=== PATIENT | male | born 1940 | race Caucasian/White ===

== ENCOUNTER 2022-10-12 12:29 | Emergency (ER) | payer MEDICARE ==
--- OUTSIDE RECORDS SUMMARY | 2022-10-12 12:33 | XMS REPORT | Continuity of Care Document ---
:1940 Author Organization [facility] t Address [address] [place] [address] [address] [place] [address] Care Team Providers Name Role Phone Eric Beal Primary Care Physician Eric Pardo Attending Clinician Unavailable Guillaume Attending Clinician Unavailable Zuri Sutton Attending Clinician Lesley_Cristy Attending Clinician Unavailable Miller Sanchez Attending Clinician Unavailable Katheryn Arias RN Attending Clinician Unavailable Only, Ang Db Test Attending Clinician Unavailable Ariane iVzcaino Attending Clinician ARIANE MARTINEZ Attending Clinician Unavailable Doctor Unassigned, [place] Attending Clinician Unavailable FulrafaelaarLionel Admitting Clinician Unavailable Yogeshzo_T Admitting Clinician Unavailable Miller Sanchez Admitting Clinician Unavailable Payers Payer Name Policy Type Policy Number Effective Date Expiration Date [facility] bubl [id number] 2022 (MEDICARE 00:00:00 REPLACEMENT HMO) [place] [id number] Common [facility] Problems Condition Condition Condition Status Onset Resolution Last Treating Co mments Source Name Details Category Date Date Treatment Clinician Date Erectile Erectile Problem Active Commo n dysfunctio dysfunctio [facility] n [place] [facility] Kidney Kidney Problem Active Common stone stones [facility] Allergies, Adverse Reactions, Alerts Allergy Allergy Status Severity Reaction(s) Onset Inactive Treating Comm ents Source Name Type Date Date Clinician roma DA Active [place] SWEEL[place], [facility] -iodine REDNESS 07-23 00:00: [address] diazepam DA Active [place] hallucinatio HC A n 07-09 00:00: [address] latex DA Active SV throat [facility] swelling 07-09 00:00: [address] NO KNOWN Drug Active Univers ALLERGIE Class ity of [facility] Social History Social Habit Start Date Stop Date Quantity Comments Source History of Tobacco Use Co mmon [facility] Sex Assigned At Com [facility] Exposure to SARS-CoV-2 Not sure [facility] Smoking Status Start Date Stop Date Source Unknown if ever smoked [facility] Never Smoker Common [facility] Medications Ordered Filled Start Stop Current Ordering Indication Dosage Frequency Signature Comments Components Source Medication Medication Date Date Medication? Clinician (SIG) Name Name Cipro 250 Cipro 250 2019-03 2020- No 1{table QD Cipro 250 MG MG 12-14 t} MG 00:00: 00:00 00 :00 Cefdinir Cefdinir 2020- No Edilia as Com 11-01 [place] directed Spirit 00:00: 00:00 - [facility] 00 :00 [facility] Pantoprazol Pantoprazol Yes Edilia 1 tablet Common e Sodium e Sodium [place] Spi [facility] Multi Multi Yes Edilia 1 tablet Common Vitamin Vitamin Marilee Spiri [facility] Carvedilol Carvedilol Yes Edilia 1 tablet Common [place] with food [facility] Enalapril Enalapril No 1{table QD Enalapril Maleate 20 Maleate 20 t} Maleate 20 MG MG MG [place] 3 [place] 3 No 1{capsu QD [place] 3 1000 MG 1000 MG le} 1000 MG Magnesium Magnesium No 1{table QD Magnesium 250 MG 250 MG t_with_ 250 MG a_meal} L-Lysine L-Lysine No L-Lysine 500 MG 500 MG 500 MG Aspirin 81 Aspirin 81 No 1{table QD Aspirin 81 MG MG t} MG Plavix 75 Plavix 75 No 1{table QD Plavix 75 MG MG t} MG Pantoprazol Pantoprazol No 1{table QD Pantoprazo e Sodium 40 e Sodium 40 t} le Sodium MG MG 40 MG Multi Multi No 1{table QD Multi Vitamin - Vitamin - t} Vitamin - Vitamin D3 Vitamin D3 No Vitamin D3 [id number] UNIT/GM UNIT/GM UNIT/GM Glimepiride Glimepiride No 1{table QD Glimepirid 4 MG 4 MG t_with_ e [address]_or_t he_firs t_main_ meal_of _the_da y} CoQ10 100 CoQ10 100 No 1{capsu QD CoQ10 100 MG MG le_with MG _a_meal } Janumet Janumet No 1{table BID Janumet 50-1000 MG 50-1000 MG t_with_ 50-1000 MG meals} Carvedilol Carvedilol No 1{table BID Carvedilol 6.25 MG 6.25 MG t_with_ 6.25 MG food} Jardiance Jardiance No 1{table QD Jardiance 25 MG 25 MG t} 25 MG Flomax 0.4 Flomax 0.4 No 1{capsu QD Flomax 0.4 MG MG le} MG Magnesium Magnesium No 1{table QD Magnesium 250 MG 250 MG t_with_ 250 MG a_meal} Jardiance Jardiance No 1{table QD Jardiance 25 MG 25 MG t} 25 MG Glimepiride Glimepiride No 1{table QD Glimepirid 4 MG 4 MG t_with_ e [address]_or_t he_firs t_main_ meal_of _the_da y} Enalapril Enalapril No 1{table QD Enalapril Maleate 20 Maleate 20 t} Maleate 20 MG MG MG Flomax 0.4 Flomax 0.4 No 1{capsu QD Flomax 0.4 MG MG le} MG Carvedilol Carvedilol No 1{table BID Carvedilol 6.25 MG 6.25 MG t_with_ 6.25 MG food} Pantoprazol Pantoprazol No 1{table QD Pantoprazo e Sodium 40 e Sodium 40 t} le Sodium MG MG 40 MG Multi Multi No 1{table QD Multi Vitamin - Vitamin - t} Vitamin - L-Lysine L-Lysine No L-Lysine 500 MG 500 MG 500 MG Aspirin 81 Aspirin 81 No 1{table QD Aspirin 81 MG MG t} MG Vitamin D3 Vitamin D3 No Vitamin D3 [id number] UNIT/GM UNIT/GM UNIT/GM [place] 3 [place] 3 No 1{capsu QD [place] 3 1000 MG 1000 MG le} 1000 MG Plavix 75 Plavix 75 No 1{table QD Plavix 75 MG MG t} MG Janumet Janumet No 1{table BID Janumet 50-1000 MG 50-1000 MG t_with_ 50-1000 MG meals} CoQ10 100 CoQ10 100 No 1{capsu QD CoQ10 100 MG MG le_with MG _a_meal } Flomax 0.4 Flomax 0.4 No 1{capsu QD Flomax 0.4 MG MG le} MG Multi Multi No 1{table QD Multi Vitamin - Vitamin - t} Vitamin - CoQ10 100 CoQ10 100 No 1{capsu QD CoQ10 100 MG MG le_with MG _a_meal } Aspirin 81 Aspirin 81 No 1{table QD Aspirin 81 MG MG t} MG Magnesium Magnesium No 1{table QD Magnesium 250 MG 250 MG t_with_ 250 MG a_meal} Plavix 75 Plavix 75 No 1{table QD Plavix 75 MG MG t} MG Vitamin D3 Vitamin D3 No Vitamin D3 [id number] UNIT/GM UNIT/GM UNIT/GM Janumet Janumet No 1{table BID Janumet 50-1000 MG 50-1000 MG t_with_ 50-1000 MG meals} [place] 3 [place] 3 No 1{capsu QD [place] 3 1000 MG 1000 MG le} 1000 MG L-Lysine L-Lysine No L-Lysine 500 MG 500 MG 500 MG Jardiance Jardiance No 1{table QD Jardiance 25 MG 25 MG t} 25 MG Glimepiride Glimepiride No 1{table QD Glimepirid 4 MG 4 MG t_with_ e [address]_or_t he_firs t_main_ meal_of _the_da y} Carvedilol Carvedilol No 1{table BID Carvedilol 6.25 MG 6.25 MG t_with_ 6.25 MG food} Pantoprazol Pantoprazol No 1{table QD Pantoprazo e Sodium 40 e Sodium 40 t} le Sodium MG MG 40 MG Enalapril Enalapril No 1{table QD Enalapril Maleate 20 Maleate 20 t} Maleate 20 MG MG MG Flomax 0.4 Flomax 0.4 No 1{capsu QD Flomax 0.4 MG MG le} MG Multi Multi No 1{table QD Multi Vitamin - Vitamin - t} Vitamin - CoQ10 100 CoQ10 100 No 1{capsu QD CoQ10 100 MG MG le_with MG _a_meal } Aspirin 81 Aspirin 81 No 1{table QD Aspirin 81 MG MG t} MG Magnesium Magnesium No 1{table QD Magnesium 250 MG 250 MG t_with_ 250 MG a_meal} Plavix 75 Plavix 75 No 1{table QD Plavix 75 MG MG t} MG Vitamin D3 Vitamin D3 No Vitamin D3 [id number] UNIT/GM UNIT/GM UNIT/GM Janumet Janumet No 1{table BID Janumet 50-1000 MG 50-1000 MG t_with_ 50-1000 MG meals} [place] 3 [place] 3 No 1{capsu QD [place] 3 1000 MG 1000 MG le} 1000 MG L-Lysine L-Lysine No L-Lysine 500 MG 500 MG 500 MG Jardiance Jardiance No 1{table QD Jardiance 25 MG 25 MG t} 25 MG Glimepiride Glimepiride No 1{table QD Glimepirid 4 MG 4 MG t_with_ e [address]_or_t he_firs t_main_ meal_of _the_da y} Carvedilol Carvedilol No 1{table BID Carvedilol 6.25 MG 6.25 MG t_with_ 6.25 MG food} Pantoprazol Pantoprazol No 1{table QD Pantoprazo e Sodium 40 e Sodium 40 t} le Sodium MG MG 40 MG Enalapril Enalapril No 1{table QD Enalapril Maleate 20 Maleate 20 t} Maleate 20 MG MG MG Jardiance Jardiance Yes Edilia 1 tablet Common [place] [facility] Janumet Janumet Yes Edilia 1 tablet Comm on [place] with meals Spiri t - [facility] Plavix Plavix Yes Edilia 1 tablet Common [place] [facility] CoQ10 CoQ10 Yes Edilia 1 capsule Common [place] with a Spirit meal [facility] Flomax Flomax Yes Edilia 1 capsule Commo n [place] [facility] Vitamin D3 Vitamin D3 Yes Edilia as Co mmon [place] directed [facility] Glimepiride Glimepiride Yes Edilia 1 tablet Common [place] with Spirit breakfast - [facility] or the [facility] meal Medical the day [place] Enalapril Enalapril Yes Edilia 1 tablet Common Maleate Maleate [place] Spiri t - [facility] Aspirin Aspirin Yes Edilia 1 tablet Comm on [place] [facility] [place] 3 [place] 3 Yes Edilia 1 capsule Com mon [place] [facility] Magnesium Magnesium Yes Edilia 1 tablet Common [place] with a Spirit meal [facility] L-Lysine L-Lysine Yes Edilia as Common [place] directed [facility] Vital Signs Vital Name Observation Time Observation Value Comments Source height 2020-03-22 10:00:00 70 [in_i] [facility] weight 2020-03-22 10:00:00 214 [lb_av] [facility] temperature 2020-03-22 10:00:00 97.4 [degF] [facility] bmi 2020-03-22 10:00:00 30.7 kg/m2 [facility] oximetry 2020-03-22 10:00:00 95 % [facility] S pirit [facility] blood pressure 2020-03-22 10:00:00 179 mm[Hg] [facility] - systolic [facility] blood pressure 2020-03-22 10:00:00 77 mm[Hg] Common [facility] - diastolic [facility] height 2019-12-21 12:00:00 70 [in_i] [facility] weight 2019-12-21 12:00:00 214 [lb_av] [facility] S [facility] - [facility] temperature 2019-12-21 12:00:00 98 [degF] Common [facility] bmi 2019-12-21 12:00:00 30.7 kg/m2 [facility] oximetry 2019-12-21 12:00:00 94 % Common [facility] blood pressure 2019-12-21 12:00:00 152 mm[Hg] Common Spirit - systolic [facility] blood pressure 2019-12-21 12:00:00 70 mm[Hg] Common [facility] - diastolic [facility] Procedures This patient has no known procedures. Encounters Start End Encounter Admission Attending Care Care Encounter Source Date/Time Date/Time Type Type Clinicians Facility Department ID 2021-04-04 Outpatient ADOLFO Pardo [facility] [id number] Common 11:33:15 Eric [id number] [facility] 2021-04-04 Outpatient Edvin [facility] [id number] Common 11:13:55 Eric [id number] [facility] 2022-10-01 2022-10-01 Outpatient Fulminar_S [facility]G [id number] [facility] 00:00:00 00:00:00 [id number] [facility] 2022-10-01 2022-10-01 Outpatient Fulminar_S DMG DM [id number] [facility] 00:00:00 00:00:00 [id number] [facility] l [facility] 2022-04-10 2022-04-10 MARIE Keating [id number]. [id number]. [facility] [id number] [facility] 16:30:00 17:30:00 Lesley [id number] [facility] [id number] 2022-04-10 2022-04-10 Outpatient Deshazo_T DMG DMG [id number] [facility] 00:00:00 00:00:00 [id number] [facility] l Group 2022-04-10 2022-04-10 Outpatient Deshazo_[place] [id number] [facility] 00:00:00 00:00:00 [id number] [facility] 2022-02-06 2022-02-06 Outpatient DMG DMG [id number] [facility] 00:00:00 00:00:00 [id number] [facility] 2021-12-24 2021-12-24 Outpatient DMG DMG [id number] [facility] 00:00:00 00:00:00 [id number] [facility]ica l Group 2021-07-23 2021-07-24 Inpatient ALLYSON Sanchez [facility] TELE [id number] [facility] 09:42:00 12:13:[id number] [facility] 2021-07-23 2021-07-24 Inpatient ALLYSON Sanchez [facility] TELE [id number] [facility] 09:42:00 12:13:[address] [facility] 2020-12-16 2020-12-16 Letter BON Arias [id number] Univers 00:00:00 00:00:00 (Out) Katheryn Muniz [place] [id number] it [facility] 4.2.7.2.686 Uriel as [phone] [address] 2020-12-15 2020-12-15 Outpatient R [facility] [id number] Univers 11:15:00 11:15:00 ity [facility] 2020-12-15 2020-12-15 Laboratory Only, Ang Db Test [facility] 1.2.8 40.114 [id number] Univers 10:57:34 11:12:34 Only [facility] [id number] ity [facility] 4.2.7.2.686 Uriel as Job?Blea [phone] [address] Medical Office Building 2020-12-10 2020-12-10 Outpatient PRIV PRIV [id number] [facility] 00:00:00 00:00:00 [id number] Medica l 2020-12-10 2020-12-10 Outpatient PRIV PRIV [id number] [facility] 00:00:00 00:00:00 [id number] Medica l 2020-11-20 2020-11-20 BON Alicia [id number] Univers 00:00:00 00:00:00 (Out) Katheryn Muniz DANIELA [id number] it y of HOSPITAL [id number] Uriel as [phone] [facility] 0[address] Branch 2020-11-18 2020-11-18 Outpatient R JUAN [facility] [id number] Univers 15:00:00 15:00:[address] [facility] 2020-11-18 2020-11-18 Laboratory Only, Ang Db Test [facility] 1.2.8 40.114 [id number] Univers 14:41:27 14:51:27 Only Juan [facility] [id number] ity of [place] 4.2.7.2.686 Uriel as Job?Blea [phone] [address] Medical Office Building 2020-11-18 2020-11-18 Letter Doctor BON [id number] Univers 00:00:00 00:00:00 (Out) LamarssDANIELA astudillo [id number] ity of [place] [facility] [id number] Uriel as [phone] [facility] 044 Branch 2020-09-18 2020-09-18 (TEL) STLMLC STLMLC [id number] Co mmon 00:00:00 00:00:00 [facility] 2020-03-22 2020-03-22 OFFICE STLMLC STLMLC [id number] Co mmon 00:00:00 00:00:00 VISIT EST Spir it PT LEVEL 3 - [facility] 2019-12-21 2019-12-21 (PROC) STLMLC STLMLC [id number] Co mmon 00:00:00 00:00:00 Procedure Spir it - [facility] 2019-12-08 2019-12-08 (TEL) STLMLC STLMLC [id number] Co mmon 00:00:00 00:00:00 [facility] 2019-11-01 2019-11-01 [id number] Common 10:15:00 10:15:00 t Specialty/U Sp sam Specialty rology - [facility] /Urology Clinic [facility] 2019-10-05 2019-10-05 Outpatient [facility] [id number] Common 09:09:00 09:09:00 t Specialty/U Sp sam Specialty rology - [facility] /[facility] 2019-10-04 2019-10-04 Outpatient [facility] [id number] Common 13:30:00 13:30:00 t Specialty/U Sp sam Specialty rology - [facility] /[facility] Clinic [facility] 2019-10-04 2019-10-04 Outpatient [facility] [id number] Common 09:07:00 09:07:00 t Specialty/U Sp sam Specialty rology - [facility] /[facility] Clinic [facility] 2019-05-24 2019-05-24 Outpatient [facility] [id number] Common 09:30:00 09:30:00 t Specialty/U Sp sam Specialty rology - [facility] /[facility] Results Test Description Test Time Test Comments Results Result Comments Source GLUCOSE BEDSIDE TESTING 2021-07-24 06:50:00 Test Item Value Reference Range Interpretation Comme nts GLUCOSE BEDSIDE TESTING (test code = GLUBED) 157 MG/DL 60-99 H GLUCOSE BEDSIDE [id number] 19:22:00 Test Item Value Reference Range Interpretation Comments GLUCOSE BEDSIDE TESTING (test code 170 MG/DL 60-99 H = GLUBED) - XR CHEST [id number] 16:17:00 [facility] 1940 Sex: M Patient Name: LEONCIO FREEMAN Unit No: [id number] EXAMS: CPT CODE: [id number] XR CHEST 1V [id number] EXAM: CHEST ONE VIEW INDICATION: S/P ICD LOCATION: B2 COMPARISON: None available TECHNIQUE: AP view of the chest FINDINGS: The heart size is normal. There is evidence of prior thoracic surgery. There is an AICD in the left chest with no apparent discontinuity of the leads. The lungs are clear bilaterally. The pulmonary vasculature is normal. No pneumothorax or pleural effusion is identified. The osseous structures are normal. IMPRESSION: No acute cardiopulmonary process. No pneumothorax is identified. at 1617 Reported and signed by: Lucinda Rivas MD CC: Miller Sanchez Technologist: [place] BROWN R Transcrpt Date/Tm/Trnsp: 07/23/2021 (1617) 16 Orig Print D/T: S: 07/23/2021 (9070) [facility] NAME: LEONCIO FREEMAN [address] PHYS: [place] [address] : 1940 AGE: 80 SEX: M LOC: Z.DC5 A PHONE #: [phone] EXAM DATE: 07/23/2021 STATUS: ADM IN FAX #: [phone] RADIOLOGY NO: PAGE 1 Signed [id number] 10:48:00 Test Item Value Reference Range Interpretation Comments MAGNESIUM (test code = MAG) 2.1 MG/DL 1.6-2.3 N BASIC METABOLIC [id number] 10:48:00 Test Item Value Reference Range Interpretation Comments SODIUM (test code = 140 MMOL/L 137-145 N NA) POTASSIUM (test code = 4.1 MMOL/L 3.5-5.1 N K) CHLORIDE (test code = 100 MMOL/L 98-107 N CL) CARBON DIOXIDE (test 27 MMOL/L 22-30 N code = CO2) GLUCOSE (test code = 168 MG/DL 74-106 H GLU) BLOOD UREA NITROGEN 21 MG/DL 9-20 H (test code = BUN) GLOMERULAR FILTRATION > 60 Report ing units: RATE (test code = GFR) ml/mi n/1.73 m2 (Modified MDRD Formula)Referen ce Range: > or = 6 0 ml/min/1.73 m2 CREATININE (test code 1.00 MG/DL 0.66-1.25 N = CREAT) CALCIUM (test code = 9.5 MG/DL 8.4-10.2 N CA) PROTHROMBIN [id number] 10:20:00 Test Item Value Reference Range Interpretation Comments PROTHROMBIN TIME 10.7 SECONDS 9.4-12.7 N PATIENT (test code = PTP) INTERNATIONAL NORMAL 1.0 0.86-1.14 N The INR is to be RATIO (test code = used only for INR) monitoring oral anticoagulantth erap y. INDICATION I NR VALUE ---- ---- ---- -------1. Prophylaxis, de ep venous thrombos is, including high risk surgery. 2.0 - 3.0 2. Prophylaxis, deep venous thrombosis, hip surgery, treatm ent for deep venous thrombosis or pulmonary prevention of systemic emboli sm in patients wit h valvular heart disease, atrial fibrillation, tissue heart va lve, or acute myocar dial infarction. 2.0 - 3.0 3. Front Office Help al prosthesis hear t valves, recurre nt systemic emboli sm. 3.0 - 4.5 PTT [id number] 10:20:00 Test Item Value Reference Range Interpretation Comments PTT ACTIVATED (test code = APTT) 31.9 SECONDS 26.2-35.4 N CBC W/AUTO [id number] 10:10:00 Test Item Value Reference Range Interpretation Comments WHITE BLOOD CELL (test code = 7.6 K/MM3 3.8-9.8 N WBC) RED BLOOD CELL (test code = 5.99 M/MM3 3.95-5.67 H RBC) HEMOGLOBIN (test code = HGB) 16.9 G/DL 12.4-16.7 H HEMATOCRIT (test code = HCT) 52.9 % 35.9-49.5 H MEAN CELL VOLUME (test code = 88 fL 81.7-96.1 N MCV) MEAN CELL HGB (test code = MCH) 28.2 pg 27.6-33.2 N MEAN CELL HGB CONCETRATION 31.9 % 32.9-35.5 L (test code = MCHC) RED CELL DISTRIBUTION WIDTH 12.7 % 12.1-15.2 N (test code = RDW) PLATELET COUNT (test code = 242 K/MM3 129-368 N PLT) MEAN PLATELET VOLUME (test code 9.0 fl 7.4-10.4 N = MPV) NEUTROPHIL % (test code = NT%) 68.4 % 43-75 N IMMATURE GRANULOCYTE % (test 0.4 % 0.0-2.0 N code = IG%) LYMPHOCYTE % (test code = LY%) 22.7 % 14-44 N MONOCYTE % (test code = MO%) 6.8 % 4-13 N EOSINOPHIL % (test code = EO%) 1.2 % 0-6 N BASOPHIL % (test code = BA%) 0.5 % 0-2 N NUCLEATED RBC % (test code = 0.0 % 0-1.0 N NRBC%) NEUTROPHIL # (test code = NT#) 5.20 K/mm3 2.0-7.6 N IMMATURE GRANULOCYTE # (test 0.03 x10 3/uL 0-0.03 N code = IG#) LYMPHOCYTE # (test code = LY#) 1.73 K/mm3 1.0-3.8 N MONOCYTE # (test code = MO#) 0.52 K/mm3 0.1-0.8 N EOSINOPHIL # (test code = EO#) 0.09 K/mm3 0.0-0.2 N BASOPHIL # (test code = BA#) 0.04 K/mm3 0.0-0.2 N NUCLEATED RBC # (test code = 0.00 K/mm3 0.0-0.1 N NRBC#) Notes Date/Time Note Provider Source 2021-07-24 06:59:00-00:[address] [facility] [place] [place] ([facility]) Cardiology Progress Note REPORT#:[id number] REPORT STATUS: Signed DATE:07/24/21 TIME: 658 PATIENT: LEONCIO FREEMAN UNIT #: [id number] [facility] AGE: 80 SEX: M ATTEND: Yousuf Sanchez MD ADM AUTHOR: Miller Sanchez MD * ALL edits or amendments must be made on the el ectronic/computer document * Subjective Chief complaint: CHF Patient reports: No: chest pain, palpitations, shortness of breat h. Objective General VS/I O: Vital Signs: Date Time Temp Pulse Resp B/P B/P Pulse O2 O2 F low FiO2 Mean Ox Delivery Rate 07/24 0651 97.5 57 18 151/75 100.0 92 Room air 07/24 0415 97.5 60 18 130/72 90.9 93 Room air 07/23 2340 97.7 60 18 119/66 83.5 94 Room air 07/23 1921 97.9 56 18 148/75 99.3 95 Room air 07/23 1706 97.3 64 15 126/72 89.8 95 PATIENT WEIGHT: Weight (lb): Weight (oz): Weight (kg): Medications: Active Meds + DC'd Last 24 Hrs Insulin Human Lispro (HumaLOG) LOW DOSE SLIDING SCALE AC HS SUBQ Dextrose/Water (DEXTROSE 50% IN WATER) 12.5 GM A SDIR PRN IV Dextrose/Water (DEXTROSE 50% IN WATER) 25 GM ASD IR PRN IV Hydrocodone Bitart/Acetaminophen (NORCO 5/325 TA BLET (C-II)) 1 TAB Q4H PRN PRN PO Cefazolin Sodium (ANCEF) 1 GM Q8H IV (DC) Sodium Chloride (SODIUM CHLORIDE 0.9%) 10 ML Cefazolin Sodium (ANCEF) 0 .STK-MED ONE .ROUTE ( DC) Fentanyl Citrate (SUBLIMAZE (C-II)) 0 .STK-MED O NE .ROUTE (DC) Midazolam HCl (VERSED (C-IV)) 0 .STK-MED ONE .RO ZENAIDA (DC) Lidocaine HCl (XYLOCAINE 1%) 0 .STK-MED ONE .ROU TE (DC) Midazolam HCl (VERSED (C-IV)) 0 .STK-MED ONE .RO ZENAIDA (DC) Atropine Sulfate (ATROPINE SULFATE) 0 .STK-MED O NE .ROUTE (DC) Iopamidol (ISOVUE-300) 0 .STK-MED ONE .ROUTE (DC ) Lidocaine HCl (XYLOCAINE 1%) 0 .STK-MED ONE .ROU TE (DC) Sodium Chloride (SODIUM CHLORIDE 0.9%) 500 ML .S TK-MED ONE IV (DC) Cefazolin Sodium (ANCEF) 0 .STK-MED ONE .ROUTE ( DC) Fentanyl Citrate (SUBLIMAZE (C-II)) 0 .STK-MED O NE .ROUTE (DC) Midazolam HCl (VERSED (C-IV)) 0 .STK-MED ONE .RO ZENAIDA (DC) Sodium Chloride (SODIUM CHLORIDE 0.9%) 1,000 ML Q13H IV Physical Exam General appearance: alert, awake, oriented Head/Eyes: atraumatic, normocephalic ENT: moist mucosal membranes Neck: no JVD Cardiovascular: CV assessment: regular rate and rhythm Respiratory: clear to auscultation, no distress Lower extremity: LE assessment: no edema Musculoskeletal: full range of motion Neuro/HEALTH CARE FACILITIES INSPECTOR: alert, oriented X 3, CN II-XII intact Skin: dry, intact Psychiatry: normal affect, normal judgment/insig ht, normal mood Results Findings/Data: Laboratory Tests 07/24 07/23 07/23 0649 1921 0955 Chemistry Sodium (137 - 145 MMOL/L) 140 Potassium (3.5 - 5.1 MMOL/L) 4.1 Chloride (98 - 107 MMOL/L) 100 Carbon Dioxide (22 - 30 MMOL/L) 27 BUN (9 - 20 MG/DL) 21 H Creatinine (0.66 - 1.25 MG/DL) 1.00 Glomerular Filtr Rate > 60 Glucose (74 - 106 MG/DL) 168 H POC Glucose (60 - 99 MG/DL) 157 H 170 H Calcium (8.4 - 10.2 MG/DL) 9.5 Magnesium (1.6 - 2.3 MG/DL) 2.1 Laboratory Tests 07/23 0955 Coagulation INR (0.86 - 1.14) 1.0 APTT (26.2 - 35.4 SECONDS) 31.9 PT Patient/Control Mix (9.4 - 12.7 SECONDS) 10. 7 Laboratory Tests 07/23 0955 Hematology WBC (3.8 - 9.8 K/MM3) 7.6 RBC (3.95 - 5.67 M/MM3) 5.99 H Hgb (12.4 - 16.7 G/DL) 16.9 H Hct (35.9 - 49.5 %) 52.9 H MCV (81.7 - 96.1 fL) 88 MCH (27.6 - 33.2 pg) 28.2 MCHC (32.9 - 35.5 %) 31.9 L RDW (12.1 - 15.2 %) 12.7 Plt Count (129 - 368 K/MM3) 242 MPV (7.4 - 10.4 fl) 9.0 Neut % (Auto) (43 - 75 %) 68.4 Lymph % (Auto) (14 - 44 %) 22.7 [place] % (Auto) (4 - 13 %) 6.8 Eos % (Auto) (0 - 6 %) 1.2 Baso % (Auto) (0 - 2 %) 0.5 Neut # (Auto) (2.0 - 7.6 K/mm3) 5.20 Lymph # (Auto) (1.0 - 3.8 K/mm3) 1.73 [place] # (Auto) (0.1 - 0.8 K/mm3) 0.52 Eos # (Auto) (0.0 - 0.2 K/mm3) 0.09 Baso # (Auto) (0.0 - 0.2 K/mm3) 0.04 Immature Gran % (0.0 - 2.0 %) 0.4 Nucleated RBC % (0 - 1.0 %) 0.0 Nucleated RBCs # (Man) (0.0 - 0.1 K/mm3) 0.00 Laboratory Tests 07/23 0955 Chemistry Magnesium (1.6 - 2.3 MG/DL) 2.1 Laboratory Tests 07/23 0955 Coagulation APTT (26.2 - 35.4 SECONDS) 31.9 Radiology data: Recent Impressions: RADIOLOGY - XR CHEST 1V 07/23 1547 Report Impression - Status: SIGNED Entered: 07/23/2021 1620 IMPRESSION: No acute cardiopulmonary process. No pneumothora x is identified. Impression By: Doris - Lucinda Rivas MD Diagnosis, Assessment Plan Free Text DxA P Notes Free Text DxA P Notes: IMP: Chronic systolic heart failure s/p [place] [employer]. PLAN: AICD interrogation. d/c home f/u one week. at 0929 RPT #:[id number] END OF REPORT 2021-07-23 18:53:00-00:00 [id number] [facility] [address] [place], [place] [id number] PATIENT NAME: LEONCIO FREEMAN ADMIT DATE: 07/23/21 ACCOUNT NO: [id number] ROOM NO: Z.407 AGE: 80 REPORT TYPE: CARDIAC CATHETERIZATION REPORT SEX: M ADMITTING PHYSICIAN:Miller Sanchez MD ATTENDING PHYSICIAN:Miller Sanchez MD PROCEDURE DATE: 07/23/2021 PROCEDURES: 1. Non-thoracotomy biventricular pacing multi le ad AICD. 2. Left ventricular lead placement. PREOPERATIVE DIAGNOSES: 1. Ischemic cardiomyopathy with ejection fractio n 31% by gated SPECT imaging. 2. Left bundle-branch block with a QRS duration of 158 milliseconds. 3. [place] Heart [employer] class III congesti ve heart failure. POSTPROCEDURE DIAGNOSES: 1. Ischemic cardiomyopathy with ejection fractio n 31% by gated SPECT imaging. 2. Left bundle-branch block with a QRS duration of 158 milliseconds. 3. [place] Heart [employer] class III congesti ve heart failure. SURGEON: Miller Sanchez MD EMBALMER/FUNERAL DIRECTOR: None. ANESTHESIA: Local anesthesia with 1% lidocaine a nd moderate sedation. PROCEDURE DETAILS: After informed consent was ob tained explaining to the patient the risks, benefits, and alternatives, t he patient was brought to the cardiac catheterization lab in the fasting postabsorptive state. He was prepped and draped in sterile fashion. Local anesthesia was applied over the left infraclavicular area with 1% lidocaine. Access t o the vein was obtained using modified Seldinger technique with a micropuncture kit. Two wires were placed in the low right atrium and secured proximally. Add itional 1% lidocaine was applied to the infraclavicul ar area. The pocket was formed with sharp and blunt dissection as well as electrocautery. The wires were brought in the pocket. The pocket was flushed with antibiotic-containin g solution. A 6-Indonesian sheath was advanced over one wire i n left subclavian vein. The dilator was removed and wire retained. An additional wire was advanced v ia the sheath into the low right atrium. The sheath was removed, flushed, a nd reassembled. A 7-Indonesian sheath was advanced over one wire in left subclavian vein. The dilator and wire were removed. An active fixation right ventricul ar lead was advanced via the sheath under fluoroscopic guidance and secured i n the right ventricular apex. Adequate pacing and sensing parameters were conf irmed. The sheath was peeled away. The lead was secured in the pocket with 0 Ethibond suture around the suture sleeve. A 10-Indonesian sheath was advanced o johanne a second wire, which was placed through a separate venipuncture. The dila tor and wire were removed. A PATIENT NAME: LEONCIO FREEMAN 55 coronary sinus guide sheath was advanced over an AL2, which was advanced over a Wholey wire via the sheath. The Wholey wire was advanced in the coronary sinus. The AL2 was advanced and the guide sheath was a dvanced over the AL2. The AL2 and wire were removed. A balloon occlusion venog aspen was obtained. The balloon was removed. The sheath had been withdra wn slightly and an additional venogram via the sheath revealed subs election of the left lateral coronary sinus branch. Over the wire, quadripolar lead was adva nced over the Whisper wire into a left lateral coronary sinus branch. Adequate pacing a nd sensing parameters were confirmed. The guide sheath was split and peeled away. The 10-Indonesian sheath was split and peeled away. The lead was secured in the pocket with 0 Ethibond suture around the suture sleeve. A 6-Indonesian wayne th was advanced over the remaining wire in left subclavian vein. The dila tor and wire were removed. An active fixation right atrial lead was advanced via the sheath under fluoroscopic guidance and secured in right atrial appendage. Adequate pacing and sensing parameters were confirmed. The sheath wa s peeled away. The lead was secured in the pocket with 0 Ethibond suture around the sut ure sleeve. The pocket was again flushed with antibiotic-containing solution. The generator was connected to leads. Ector was applied to the pocket. The generator was placed in the pocket and secured in pocket with 0 Ethibond suture. The pocket was closed in 3 layers using 2-0 Vicryl for the subcutaneous layers and 4-0 Vicryl for the skin. Steri-Strips were applied to wound externally. The patient tolerated the procedure well with no complications. IMPLANT DATA: Pulse generator: [employer] model [id number]. Right atrial lead: [employer] Peter model 2088TC/52, ser ial # [id number]. Right ventricular lead: [employer], model 7122Q/58 , serial # [id number]. Left ventricle, [employer] Peter model 1458Q/86, serial # [id number]. STIMULATION THRESHOLD DATA: 1. Right atrium 2.1 millivol t P waves, impedance 510 ohms, threshold 0.75 volts at 0.4 milliseconds. 2. Right ventricle greater than 12 millivolt R w aves, impedance 860 ohms, HVB impedance 61 ohms, threshold 0.5 volts at 0.4 mi lliseconds. 3. Left ventricle 650 ohms, threshold 2 volts at 0.4 milliseconds. CONCLUSION: Successful non-thoracotomy biventric ular pacing AICD. ESTIMATED BLOOD LOSS: 5 mL COMPLICATIONS: No complications. Dictated By: Miller Sanchez MD WT: CATH:RUSS/PEPGR/NTS Conf#: [id number]/DID#: [id number] Authenticated by Miller Sanchez MD On 07/27/19 06:16:11 AM PATIENT NAME: LEONCIO FREEMAN 55 at 0616 PATIENT NAME: LEONCIO FREEMAN 353 2021-07-23 10:37:00-00:00 [id number] [place] [address] PATIENT NAME: LEONCIO FREEMAN ADMIT DATE: 07/23/21 ACCOUNT NO: [id number] ROOM NO: Z.DC5 AGE: 80 REPORT TYPE: ELECTROCARDIOGRAM SEX: M ADMITTING PHYSICIAN:Miller Sanchez MD ATTENDING PHYSICIAN:Miller Sanchez MD Order: [id number] Test Reason : CARDIOMYOPATHY Test Date/Time Stamp: FriJul 23 2021 10:37:30 Blood Pressure : / mmHG Vent. Rate : 072 BPM Atrial Rate : 072 BPM P-R Int : 250 ms QRS Dur : 168 ms QT Int : 432 ms P-R-T Axes : 034 103 -13 degree s QTc Int : 473 ms Sinus rhythm with 1st degree AV block Rightward axis Left bundle branch block Abnormal ECG When compared with ECG of 09-JUL-2014 05:34, premature ventricular complexes are no longer pr esent CT interval has increased Left bundle branch block is now present Borderline criteria for Anterior infarct are no longer present Borderline criteria for Anterolateral infarct ar e no longer present Confirmed by JONATHAN HAQUE ([id number]) on 07/23/2021 4:51:02 PM Referred By: Miller Sanchez Confirmed by:JONATHAN ALSTON at [id number] PATIENT NAME: LEONCIO FREEMAN 55
[2022-10-12] MEDS ORDERED: CYCLOBENZAPRINE 10 MG TAB ONE (13:01)
[2022-10-12] MEDS ORDERED: HYDROCODONE/APAP 10/325 TAB ONE (13:02)
[2022-10-12] MEDS ORDERED: KETOROLAC 30 MG/ML INJ ONE (13:02)
--- NOTE | 2022-10-12 13:44 | EDPHYS ---
Physician Documentation [facility] Name: Eduin Freeman Age: 81 yrs Sex: Male : 1940 Arrival Date: 10/12/2022 Time: 12:29 Bed 4 Private MD: ED Physician Agus Howe HPI: 10/12 13:33 This 81 yrs old Male presents to ER via Wheelchair with complaints of Neck and Upper kb Back Pain, Shoulder Pain. 15:02 The patient or guardian complains of pain, tenderness. The symptoms are located on the kb right posterior aspect of neck. Onset: The symptoms/episode began/occurred months ago and got worse over the last few days. Context: The problem was sustained at home, The neck injury/problem resulted from from unknown cause. Associated signs and symptoms: Pertinent positives: This patient does not have any pertinent positive signs or symptoms associated with neck pain. The patient denies any alcohol use. The patient is not apparently intoxicated. No neurological symptoms were experienced by the patient prior to arrival in the emergency department. The pain radiates to the right trapezius and right scapular area. Modifying factors: The symptoms are alleviated by nothing. the symptoms are aggravated by movement. Severity of symptoms: At their worst the symptoms were moderate, in the emergency department the symptoms are unchanged. The patient has not experienced similar symptoms in the past. The patient has not recently seen a physician. Historical: - Allergies: 12:44 Betaine; mb9 12:44 diazepam; mb9 12:44 Latex, Natural Rubber; mb9 - Home Meds: 12:44 enalapril maleate 5 mg Oral tablet once [Active]; carvedilol 6.25 mg oral tablet 2 mb9 times per day [Active]; clopidogrel 75 mg oral tablet daily [Active]; aspirin 81 mg Oral capsule once [Active]; tamsulosin 0.4 mg oral capsule once [Active]; - PMHx: 12:44 Diabetes mellitus; Hypertensive disorder; Enlarged prostate; mb9 - PSHx: 12:46 back surgery; defibrillator; bypass; mb9 - Immunization history:: Adult Immunizations up to date. - Social history:: Smoking status: Patient denies any tobacco usage or history of. ROS: 14:49 Constitutional: Negative for fever, chills, and weight loss. kb 14:49 Neck: Positive for pain with movement, pain at rest, of the right posterior aspect of neck. 14:49 All other systems are negative. Exam: 15:01 Constitutional: This is a well developed, well nourished patient who is awake, alert, kb and in no acute distress. Head/Face: Normocephalic, atraumatic. ENT: Moist Mucous membranes Cardiovascular: Regular rate and rhythm with a normal S1 and S2. No gallops, murmurs, or rubs. No pulse deficits. Respiratory: Respirations even and unlabored. No increased work of breathing. Talking in full sentences Skin: Warm, dry with normal turgor. Normal color. MS/ Extremity: Pulses equal, no cyanosis. Neurovascular intact. Full, normal range of motion. Neuro: Awake and alert, GCS 15, oriented to person, place, time, and situation. Moves all extremities. Normal gait. 15:01 Neck: External neck: tenderness, that is mild, of the right posterior aspect of neck. 15:01 Back: pain, that is moderate, of the right trapezius and right scapular area, ROM is painful. Vital Signs: 12:42 BP 189 / 91; Pulse 72; Resp 18; Temp 98.2; Pulse Ox 100% on R/A; Weight 94.35 kg; mb9 Height 5 ft. 10 in. ; Pain 10/10; 13:23 BP 143 / 68; Pulse 68; Resp 16; Pulse Ox 99% on R/A; mb9 12:42 Body Mass Index 29.84 (94.35 kg, 177.8 cm) mb9 12:42 Pain Scale: Adult mb9 MDM: 12:35 Patient medically screened. kb 14:52 Differential diagnosis: cervical strain, torticollis, cervical radiculopathy. Data kb reviewed: vital signs, nurses notes. 15:00 Test considered but Not performed: CT: CT neck considered. Historians other than the kb Patient: Daughter/Son: daughter. External Records Reviewed: Outpatient radiology: CT soft tissue neck completed in 12/2021 showing soft tissue mass, likely lipoma. . Counseling: I had a detailed discussion with the patient and/or guardian regarding: the historical points, exam findings, and any diagnostic results supporting the discharge/admit diagnosis, the need for outpatient follow up, a family practitioner, to return to the emergency department if symptoms worsen or persist or if there are any questions or concerns that arise at home. Administered Medications: 12:54 Drug: Ketorolac IM 30 mg Route: IM; Site: left deltoid; mb9 12:55 Drug: [place] PO 10 mg-325 mg 1 tabs Route: PO; mb9 12:55 Drug: Cyclobenzaprine PO 10 mg Route: PO; mb9 Disposition: 19:15 I reviewed the patient's care provided by Advanced Practice Provider \T\ agree w/ the cp3 diagnosis \T\ care plan. I personally saw the pt \T\ performed a substantive portion of the visit, incldng all aspects of the (History/Exam/Medical Decision Making). Disposition Summary: 10/12/22 13:43 Discharge Ordered Location: Home kb Condition: Stable kb Diagnosis - Neck pain kb Followup: kb - With: Emergency Department - When: As needed - Reason: Worsening of condition Followup: kb - With: Private Physician - When: 2 - 3 days - Reason: Recheck today's complaints, Continuance of care, Re-evaluation by your physician Discharge Instructions: - Discharge Summary Sheet kb - Musculoskeletal Pain kb - Cervical Radiculopathy, [id number] kb Forms: - Medication Reconciliation Form kb - Thank You Letter kb - Antibiotic Education kb - Prescription Opioid Use kb - Patient Portal Instructions kb Prescriptions: - Diclofenac Sodium 75 mg Oral tablet,delayed release (DR/EC) - take 1 tablet by ORAL route 2 times per day As needed; 30 tablet; Refills: 0, kb Product Selection Permitted - Tramadol 50 mg Oral Tablet - take 1 tablet by ORAL route every 8 hours as needed; 12 tablet; Refills: 0, kb Product Selection Permitted - orphenadrine citrate 100 mg Oral Tablet Sustained Release - take 1 tablet by ORAL route 2 times per day As needed; 20 tablet; Refills: 0, kb Product Selection Permitted Signatures: Taay Jewell FNP-C FNP-Ckb Pinckney, Cwanza, MD MD cp3 Tiki Keenan RN RN mb9 Corrections: (The following items were deleted from the chart) 15:01 14:52 Differential diagnosis: cervical strain, torticollis, kb kb
--- NOTE | 2022-10-12 13:44 | ER ---
Nurse's Notes [facility] Name: Eduin Freeman Age: 81 yrs Sex: Male : 1940 Arrival Date: 10/12/2022 Time: 12:29 Bed 4 Private MD: Diagnosis: Neck pain Presentation: 10/12 12:42 Chief complaint: Patient states: "I have neck pain that radiates to my right shoulder mb9 for the past 2-3 months. It spasms and hurts to walk and move my neck around.". Coronavirus screen: Vaccine status: Patient reports receiving the 2nd dose of the covid vaccine. Ebola Screen: No symptoms or risks identified at this time. Initial Sepsis Screen: Does the patient meet any 2 criteria? No. Patient's initial sepsis screen is negative. Does the patient have a suspected source of infection? No. Patient's initial sepsis screen is negative. Risk Assessment: Do you want to hurt yourself or someone else? Patient reports no desire to harm self or others. Onset of symptoms was 2022. 12:42 Method Of Arrival: Wheelchair mb9 12:42 Acuity: RIKKI 4 mb9 Triage Assessment: 12:47 General: Appears uncomfortable, Behavior is anxious. Pain: Complains of pain in neck mb9 Pain does not radiate. Pain radiates to right shoulder and back Pain currently is 10 out of 10 on a pain scale. Quality of pain is described as sharp, shooting, Pain began gradually. Neuro: Rodriguez Agitation-Sedation Scale (RASS): 0 - Alert and Calm Level of Consciousness is awake, alert, obeys commands, Oriented to person, place, time, situation, Appropriate for age. Cardiovascular: Patient's skin is warm and dry. Respiratory: Airway is patent Respiratory effort is even, unlabored, Respiratory pattern is regular, symmetrical. GI: No signs and/or symptoms were reported involving the gastrointestinal system. : No signs and/or symptoms were reported regarding the genitourinary system. Derm: Skin is pink, warm \\T\\ dry. Musculoskeletal: Range of motion: intact in all extremities. Historical: - Allergies: 12:44 Betaine; mb9 12:44 diazepam; mb9 12:44 Latex, Natural Rubber; mb9 - Home Meds: 12:44 enalapril maleate 5 mg Oral tablet once [Active]; carvedilol 6.25 mg oral tablet 2 mb9 times per day [Active]; clopidogrel 75 mg oral tablet daily [Active]; aspirin 81 mg Oral capsule once [Active]; tamsulosin 0.4 mg oral capsule once [Active]; - PMHx: 12:44 Diabetes mellitus; Hypertensive disorder; Enlarged prostate; mb9 - PSHx: 12:46 back surgery; defibrillator; bypass; mb9 - Immunization history:: Adult Immunizations up to date. - Social history:: Smoking status: Patient denies any tobacco usage or history of. Screenin:48 [facility] ED Fall Risk Assessment (Adult) History of falling in the last 3 months, mb9 including since admission No falls in past 3 months (0 pts) Confusion or Disorientation No (0 pts) Intoxicated or Sedated No (0 pts) Impaired Gait No (0 pts) Mobility Assist Device Used No (0 pt) Altered Elimination No (0 pt) Score/Fall Risk Level 0 - 2 = Low Risk Oriented to surroundings, Maintained a safe environment, Educated pt \\T\\ family on fall prevention, incl call for assistance when getting out of bed. Abuse screen: Denies threats or abuse. Nutritional screening: No deficits noted. Tuberculosis screening: No symptoms or risk factors identified. Assessment: 13:23 Reassessment: Patient and/or family updated on plan of care and expected duration. Pain mb9 level reassessed. Patient is alert, oriented x 3, equal unlabored respirations, skin warm/dry/pink. Patient states feeling better. Patient states symptoms have improved. 14:00 Reassessment: Patient and/or family updated on plan of care and expected duration. Pain mb9 level reassessed. Patient is alert, oriented x 3, equal unlabored respirations, skin warm/dry/pink. Patient states feeling better. Patient states symptoms have improved. Vital Signs: 12:42 BP 189 / 91; Pulse 72; Resp 18; Temp 98.2; Pulse Ox 100% on R/A; Weight 94.35 kg; mb9 Height 5 ft. 10 in. ; Pain 10/10; 13:23 BP 143 / 68; Pulse 68; Resp 16; Pulse Ox 99% on R/A; mb9 12:42 Body Mass Index 29.84 (94.35 kg, 177.8 cm) mb9 12:42 Pain Scale: Adult mb9 ED Course: 12:31 Patient arrived in ED. ts1 12:35 Taya Jewell FNP-C is [facility]. kb 12:35 Agus Howe MD is Attending Physician. kb 12:35 Tiki Keenan, RN is Primary Nurse. mb9 12:35 Arm band placed on. mb9 12:36 Bed in low position. Call light in reach. Side rails up X 1. Client placed on mb9 continuous cardiac and pulse oximetry monitoring. NIBP monitoring applied. 12:44 Triage completed. mb9 12:48 No provider procedures requiring assistance completed. Patient did not have IV access mb9 during this emergency room visit. Administered Medications: 12:54 Drug: Ketorolac IM 30 mg Route: IM; Site: left deltoid; mb9 12:55 Drug: [place] PO 10 mg-325 mg 1 tabs Route: PO; mb9 12:55 Drug: Cyclobenzaprine PO 10 mg Route: PO; mb9 Medication: 12:36 VIS not applicable for this client. mb9 Outcome: 13:43 Discharge ordered by . kb 14:00 Discharged to home via wheelchair, with family. mb9 14:00 Condition: stable 14:00 Discharge instructions given to patient, family, Instructed on discharge instructions, follow up and referral plans. Demonstrated understanding of instructions, follow-up care, medications, Prescriptions given X 3. 14:00 Patient left the ED. mb9 Signatures: Taya Jewell FNP-C FNP-Tiki Mejia, RN RN mb9 Joyce Azar PAS PAS ts1
[2022-10-12 14:07] VITALS: TEMP 98.2
[2022-10-12 14:08] VITALS: BP 143/68; O2SAT 99
== END 2022-10-12 14:00 | disposition home or self-care (01) ==
LOC: ER 12:29
DX: M54.2 Cervicalgia (principal); Z88.8 Allergy status to other drugs, medicaments and biological substances; Z91.040 Latex allergy status
CPT/HCPCS: 96372; 99284

== ENCOUNTER → 2023-03-15 | Emergency (ER) | payer MEDICARE ==
[2023-03-15 18:01] LABS: Absolute Lymphocytes (CBC) 2.1 K/uL (0.7-4.9); Hematocrit 43.6 % (39.6-49.0); Lymphocytes % 27.4 % (15.3-44.8); MCV 86.6 fL (80-100); MPV 6.8 fL (7.6-11.3); Platelets 243 thou/uL (152-406); RBC Red Blood Cell Count 5.04 M/uL (4.33-5.43)
[2023-03-15 18:16] LABS: Protime INR 1.06
--- NOTE | 2023-03-15 18:19 | EDPHYS ---
Physician Documentation [facility] Name: Eduin Freeman Age: 82 yrs Sex: Male : 1940 Arrival Date: 03/15/2023 Time: 16:52 Bed 4 Private MD: ED Physician Robles Dexter HPI: 03/15 17:37 This 82 yrs old Male presents to ER via Ambulatory with complaints of Eye ec2 Problem - Bleeding/on blood thinners. 17:38 Patient arrives today for evaluation due to concern for vision loss. Patient states in ec2 the right eye he had noticed a curtain like sensation come down, states that he feels like it is bloody. Patient is on Plavix and aspirin. Patient reports flashers and floaters as well. Denies any eye trauma.. Historical: - Allergies: 17:10 diazepam; cm10 17:10 Latex; cm10 17:10 Betadine; cm10 - PMHx: 17:10 diabetes mellitus; enlarged prostate; Hypertensive disorder; cm10 - PSHx: 17:10 back surgery; bypass; defibrillator; cm10 - Immunization history:: Adult Immunizations unknown. - Social history:: Smoking status: Patient denies any tobacco usage or history of. ROS: 17:39 Constitutional: as per hpi ec2 Exam: 17:39 Constitutional: GEN: NAD Head: atraumatic Eyes: EOMI, no hypopyon, no hyphema, no ec2 injection Ears: External ears are normal. CV: regular rate LUNGS: no respiratory distress ABD: non-distended SKIN: no evidence of rashes MSK: no evidence of trauma NEURO: moves all extremities equally Vital Signs: 17:08 BP 168 / 73; Pulse 68; Resp 18; Temp 98(TE); Pulse Ox 96% on R/A; Weight 94.35 kg; cm10 Height 5 ft. 10 in. ; Pain 0/10; 19:47 BP 182 / 80; Pulse 69; Resp 16; Pulse Ox 95% on R/A; km8 17:08 Body Mass Index 29.84 (94.35 kg, 177.8 cm) cm10 17:08 Pain Scale: Adult cm10 Visual Acuity: 18:11 Left Eye Visual acuity 20/50, ; Right Eye Visual acuity 20/70, ; Both Eyes Visual em1 acuity 20/40; With Lenses; Procedures: 17:39 Ultrasound: Type: ocular, performed by the emergency department physician. ec2 MDM: 17:16 Patient medically screened. ec2 17:39 Data reviewed: vital signs. ED course: Patient arrives today due to concern for vision ec2 issues. Examination remarkable for well-appearing individual who is in no acute distress with a reassuring external ocular examination. I placed performed an ultrasound of the right globe which showed vitreous hemorrhage, unable to visualize retinal flap. Will obtain lab work and coagulation profile discussed with residential field manager. Of note patient is scheduled to have cataract surgery in 3 days.. 18:17 ED course: Additionally recurring transferring the patient to an ophthalmology capable ec2 center given concern for possible retinal tear with associated vitreous hemorrhage.. 18:20 ED course: Coagulation profile is unremarkable. CBC is reassuring. . ec2 18:36 ED course: Discussed case with Dr. Santos, opthomologist at [facility]. ec2 18:47 ED course: Agreed accept patient as a ED to ED transfer.. ec2 03/15 17:31 Order name: CBC with Diff; Complete Time: 18:19 ec2 03/15 17:31 Order name: CMP; Complete Time: 18:33 ec2 03/15 17:31 Order name: PT-INR; Complete Time: 18:19 ec2 03/15 17:31 Order name: Ptt, Activated; Complete Time: 18:19 ec2 03/15 17:39 Order name: Visual Acuity; Complete Time: 18:12 ec2 Administered Medications: No medications were administered Disposition Summary: 03/15/23 18:19 Transfer Ordered Notes: Reason: Higher level of care ec2 Condition: Stable ec2 Problem: new ec2 Symptoms: are unchanged ec2 Transfer Location: [facility](03/15/23 18:48) ec2 Accepting Physician: Dr. Santos(03/15/23 19:49) km8 Diagnosis - Vitreous hemorrhage, right eye ec2 Forms: - Medication Reconciliation Form ec2 - SBAR form ec2 Signatures: Dispatcher [employer] Renetta Jose RN RN cm10 Robles Dexter MD MD ec2 Shwetha Ferguson RN RN km8 Corrections: (The following items were deleted from the chart) 17:11 17:10 Allergies: Betaine; cm10 cm10 18:48 18:19 transferring doc ec2 ec2 18:48 18:19 Other Acute [facility] ec2 ec2 19:49 18:48 Dr. Santos ec2 km8
--- NOTE | 2023-03-15 18:19 | ER ---
Nurse's Notes [facility] Name: Eduin Freeman Age: 82 yrs Sex: Male : 1940 Arrival Date: 03/15/2023 Time: 16:52 Bed 4 Private MD: Diagnosis: Vitreous hemorrhage, right eye Presentation: 03/15 17:08 Chief complaint: Patient states: "I am seeing a red curtain out of my right eye." pt cm10 states that this began at 1600. No pain. Coronavirus screen: Vaccine status: Patient reports receiving the 2nd dose of the covid vaccine. Client denies travel out of the [place] in the last 14 days. Ebola Screen: Patient denies travel to an Ebola-affected area in the 21 days before illness onset. No symptoms or risks identified at this time. Initial Sepsis Screen: Does the patient meet any 2 criteria? No. Patient's initial sepsis screen is negative. Does the patient have a suspected source of infection? No. Patient's initial sepsis screen is negative. Risk Assessment: Do you want to hurt yourself or someone else? Patient reports no desire to harm self or others. Onset of symptoms was March 15, 2023. 17:08 Method Of Arrival: Ambulatory cm10 17:08 Acuity: RIKKI 2 cm10 Triage Assessment: 17:15 General: Appears. ap3 Historical: - Allergies: 17:10 diazepam; cm10 17:10 Latex; cm10 17:10 Betadine; cm10 - PMHx: 17:10 diabetes mellitus; enlarged prostate; Hypertensive disorder; cm10 - PSHx: 17:10 back surgery; bypass; defibrillator; cm10 - Immunization history:: Adult Immunizations unknown. - Social history:: Smoking status: Patient denies any tobacco usage or history of. Screenin:15 [facility] ED Fall Risk Assessment (Adult) History of falling in the last 3 months, ap3 including since admission No falls in past 3 months (0 pts). Abuse screen: Denies threats or abuse. Nutritional screening: No deficits noted. Tuberculosis screening: No symptoms or risk factors identified. Assessment: 17:15 General: Appears in no apparent distress. Behavior is calm, cooperative, appropriate ap3 for age. Pain: Denies pain. Neuro: Level of Consciousness is awake, alert, obeys commands, Oriented to person, place, time, situation, Appropriate for age. Cardiovascular: Patient's skin is warm and dry. Respiratory: Airway is patent Respiratory effort is even, unlabored, Respiratory pattern is regular, symmetrical. 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 19:00 Reassessment: Patient appears in no apparent distress at this time. No changes from km8 previously documented assessment. Patient and/or family updated on plan of care and expected duration. Pain level reassessed. Patient is alert, oriented x 3, equal unlabored respirations, skin warm/dry/pink. Patient is alert/active/playful, equal unlabored respirations, skin warm/dry/pink. 19:38 General: report called to STAS Kendrick at [facility]. km8 Vital Signs: 17:08 BP 168 / 73; Pulse 68; Resp 18; Temp 98(TE); Pulse Ox 96% on R/A; Weight 94.35 kg; cm10 Height 5 ft. 10 in. ; Pain 0/10; 19:47 BP 182 / 80; Pulse 69; Resp 16; Pulse Ox 95% on R/A; km8 17:08 Body Mass Index 29.84 (94.35 kg, 177.8 cm) cm10 17:08 Pain Scale: Adult cm10 Visual Acuity: 18:11 Left Eye Visual acuity 20/50, ; Right Eye Visual acuity 20/70, ; Both Eyes Visual em1 acuity 20/40; With Lenses; ED Course: 16:56 Patient arrived in ED. mg5 17:10 Triage completed. cm10 17:11 Arm band placed on Patient placed in an exam room, on a stretcher. cm10 17:12 Robles Dexter MD is Attending Physician. ec2 17:16 Patient has correct armband on for positive identification. Bed in low position. Call ap3 light in reach. Side rails up X 1. Pulse ox on. NIBP on. 17:29 Sarai Lowry, STAS is Primary Nurse. ap3 17:53 No provider procedures requiring assistance completed. Initial lab(s) drawn, by nv, ap3 sent to lab. Inserted saline lock: 20 gauge in left antecubital area, using aseptic technique. Blood collected. 17:54 Ptt, Activated Sent. ap3 17:54 PT-INR Sent. ap3 17:54 CMP Sent. ap3 17:54 CBC with Diff Sent. ap3 18:17 initiated a transfer with Jeffrey from the [facility]/ they will have to eb decline due to not having retina specialty. 18:18 initiated a transfer with Katelin from the [facility] they will have eb to decline the patient due to the ED being at capacity. 18:30 initiated a transfer with the [facility] transfer Center. eb 19:47 Provided Education on: transfer process. km8 19:48 IV discontinued, intact, bleeding controlled, No redness/swelling at site. Pressure km8 dressing applied. Administered Medications: No medications were administered Medication: 17:16 VIS not applicable for this client. ap3 Outcome: 18:19 ER care complete, transfer ordered by . ec2 19:48 Transferred to [facility], Transfer form completed. Note: km8 packet sent with patient and family; pt transferred by POV driven by daughter 19:48 Condition: stable 19:48 Instructed on the need for transfer, Demonstrated understanding of instructions, 19:49 Patient left the ED. km8 Signatures: Nixon Jones em1 Sarai Lowry, RN RN ap3 Elena Aguirre Clarissa RN RN cm10 Stefany Chun mg5 Robles Dexter MD MD ec2 Shwetha Ferguson RN RN km8 Corrections: (The following items were deleted from the chart) 17:11 17:10 Allergies: Betaine; cm10 cm10
[2023-03-15 18:25] LABS: Albumin 3.8 g/dL (3.4-5.0); Bilirubin Total 0.4 mg/dL (0.2-1.0); Protein, Total 7.4 g/dL (6.4-8.2)
[2023-03-15 22:16] VITALS: TEMP 98
[2023-03-15 22:27] VITALS: BP 182/80; O2SAT 95
== END ==
LOC: ER 16:52
DX: H43.11 Vitreous hemorrhage, right eye (principal); I10 Essential (primary) hypertension; E11.9 Type 2 diabetes mellitus without complications; Z95.810 Presence of automatic (implantable) cardiac defibrillator; Z95.1 Presence of aortocoronary bypass graft; Z79.01 Long term (current) use of anticoagulants; Z79.82 Long term (current) use of aspirin; Z88.3 Allergy status to other anti-infective agents; Z88.8 Allergy status to other drugs, medicaments and biological substances; Z91.040 Latex allergy status
CPT/HCPCS: 36415; 80053; 85025; 85610; 85730; 99285